=== PATIENT | female | born 1955 | race Caucasian/White ===

== ENCOUNTER → 2017-02-03 | Outpatient (CLI) | payer MEDICARE | LOC: COL.RAD 13:48 | DX: M19.012 Primary osteoarthritis, left shoulder (principal); M94.8X1 Other specified disorders of cartilage, shoulder; S46.812A Strain of other muscles, fascia and tendons at shoulder and upper arm level, left arm, initial encounter; S43.402A Unspecified sprain of left shoulder joint, initial encounter ==

== ENCOUNTER → 2017-12-05 | Outpatient (CLI) | payer MEDICARE | LOC: MC.RAD 09:55 | DX: Z12.31 Encounter for screening mammogram for malignant neoplasm of breast (principal) ==

== ENCOUNTER → 2021-03-16 | Outpatient (CLI) | payer MEDICARE | LOC: COL.RAD 13:34 | DX: D17.23 Benign lipomatous neoplasm of skin and subcutaneous tissue of right leg (principal) ==

== ENCOUNTER → 2021-03-26 | Outpatient (CLI) | payer MEDICARE | LOC: MC.RAD 08:45 | DX: Z12.31 Encounter for screening mammogram for malignant neoplasm of breast (principal) ==